=== PATIENT | female | born 1995 | race Two or more races ===

== ENCOUNTER 2021-07-23 19:06 | Emergency (ER) | payer SELFPAY ==
[~2021-07-23] VITALS: Ht 172.7 cm; Wt 64.0 kg
[2021-07-23 19:08] VITALS: BP 131/95
== END 2021-07-23 22:34 | disposition left against medical advice (07) ==
LOC: ER 19:07
DX: M79.645 Pain in left finger(s) (principal); Z53.21 Procedure and treatment not carried out due to patient leaving prior to being seen by health care provider